=== PATIENT | female | born 1980 | race Caucasian/White ===

== ENCOUNTER 2017-12-18 20:30 | Emergency (ER) | payer OTHER ==
[~2017-12-18] VITALS: Ht 157.5 cm; Wt 90.7 kg
--- NOTE | ~2017-12-18 | EKG ---
[address] [address] ELECTROCARDIOGRAM REPORT Name: GABBIE WESLEYHUBER Landin Room #: [facility]#: [id number] Admission: 12/18/17 Attend Phys: Discharge: 12/19/17 Date of : 80 Report #: [id number] THIS REPORT FOR: //name// [facility] ED Test Date: 2017-12-18 Test Time: 22:43:14 Pat Name: STEFAN WESLEY Department: Room: Gender: F Electrical Apprentice: TEJABETTYE : 1980 Requested By: Denise De Leon Order Number: [id number] MD: Jayson Yu Measurements Intervals [place] Rate: 57 P: 4 MN: 162 QRS: -13 QRSD: 98 T: -15 QT: 410 QTc: 400 Interpretive Statements Sinus rhythm Inferior infarct, age indeterminate No previous ECG available for comparison Electronically Signed On 12-19-2017 8:07:47 CDT by Jayson Yu [email or web address] <ELECTRONICALLY SIGNED> By: Jayson Yu MD, [facility] 12/19/17 [id number] Jayson Yu MD, FACC /EPI
[2017-12-18 23:00] LABS: URINE BILIRUBIN NEGATIVE (Negative); URINE BLOOD NEGATIVE (Negative); URINE CLARITY SL CLOUDY; URINE COLOR YELLOW; URINE GLUCOSE-RANDOM* NEGATIVE (Negative); URINE KETONES NEGATIVE (Negative); URINE PROTEIN (DIPSTICK) NEGATIVE (Negative); URINE SPECIFIC GRAVITY 1.015 (1.005-1.035); URINE UROBILINOGEN 0.2 E.U./dl (0.2-1.0)
[2017-12-18 23:02] LABS: URINE LEUKOCYTES-REFLEX TRACE (Negative); URINE NITRITE-REFLEX POSITIVE (Negative)
[2017-12-18 23:02] LABS: ABSOLUTE NEUTROPHILS 3.7 thou/uL (1.4-8.2); BASOPHILS 0.9 % (0.0-2.0); EOSINOPHILS 4.2 % (0.0-3.0); HEMATOCRIT 35.4 % (37.0-47.0); HEMOGLOBIN 12.2 gm/dL (12.0-15.0); LYMPHOCYTES 35.9 % (24.0-44.0); MCHC 34.4 g/dL (28.0-37.0); MCV 84.1 fL (80.0-100.0); MONOCYTES 8.1 % (1.0-8.0); PLATELET COUNT 212 thou/uL (150-400); POLYS 50.9 % (36.0-66.0); RBC 4.21 mil/uL (4.20-5.00); RDW 14.2 % (10.5-14.5); WBC 7.2 thou/uL (4.0-11.0)
[2017-12-18 23:10] LABS: AMORPHOUS PHOSPHATES Moderate /LPF (None Seen); BACTERIA-REFLEX >30 Many /HPF (None Seen); CALCIUM OXALATE 0-3 Few /LPF (None Seen); CASTS None Seen /LPF (None Seen); MUCUS 0-3 Light strn/LPF (None Seen); SQUAMOUS >10 Many /LPF (0-3); URINE RBC None Seen /HPF (0-2); URINE WBC-REFLEX 0-5 Rare /HPF (0-5)
[2017-12-18 23:16] LABS: APTT 27.5 Seconds (24.5-32.8)
[2017-12-18 23:18] LABS: ANION GAP 7 mmol/L (7-16); BUN 11 mg/dL (7-18); CALCIUM 8.7 mg/dL (8.5-10.1); CHLORIDE 107 mmol/L (98-107); CO2 28 mmol/L (21-32); CREATININE 0.8 mg/dL (0.6-1.0); GLUCOSE 103 mg/dL (74-106); POTASSIUM 3.3 mmol/L (3.5-5.1); SODIUM 142 mmol/L (136-145); TROPONIN-I <0.06 ng/mL (<0.06)
[2017-12-18] MEDS ORDERED: LISINOPRIL20 MG PO (23:48)
[2017-12-18] MEDS ORDERED: NEURONTIN 300300 M1 PO (23:49)
[2017-12-18] MEDS ORDERED: XARELTO10 MG PO (23:49)
[2017-12-19] MEDS ORDERED: KEFLEX500 M1 PO (01:00)
[2017-12-19 01:19] VITALS: BP 121/74
== END 2017-12-19 01:22 | disposition home or self-care (01) ==
LOC: ER 20:30
PROVIDERS: Emergency Medicine
DX: F41.9 Anxiety disorder, unspecified (principal); N39.0 Urinary tract infection, site not specified; J45.909 Unspecified asthma, uncomplicated; I10 Essential (primary) hypertension; Z86.73 Personal history of transient ischemic attack (TIA), and cerebral infarction without residual deficits